=== PATIENT | male | born 1955 | race Caucasian/White ===

== ENCOUNTER 2024-11-30 23:45 | Inpatient (IN) | payer MEDICARE, OTHER, SELFPAY ==
[2024-11-30] VITALS (8 sets, daily range): BP systolic 101–175; BP diastolic 76–113; BMI 30.4
--- NOTE | 2024-11-30 19:59 | ED.GENMED ---
History of Present Illness
General
Chief Complaint: Fall
Source: patient and family (Sister (POA))
Exam Limitations: none
Time Seen by Provider: 11/30/24 19:41
Nursing documentation reviewed up to this point in time: agreed with
History of Present Illness
History of Present Illness:
69-year-old male with history of MR presents to the emergency room with his sister who is his POA; presents for evaluation after a fall. Patient has ambulatory dysfunction/chronic ataxia. Has frequent falls. Got up to get the remote control today
and lost his balance and fell onto his left side. He is not sure whether he hit his head but complains mainly of pain in his left hip. He says he did not pass out. He denies any headache, neck pain, back pain, rib pain or abdominal pain. He
denies any pain in his upper extremities. He complains of pain in his hip on the left mostly when he tries to move. He is not on any blood thinners per review of his medication list.
Review of Systems
Review of Systems
All Other Systems: ROS reviewed and negative except as documented in HPI and ROS
Respiratory: Denies trouble breathing
Cardiac: Denies chest pain
ABD/GI: Denies abdominal pain or nausea
Musculoskeletal: Reports joint pain; Denies neck pain or back pain
Neurological: Denies headache
Phy Exam
Physical Exam
Physical Exam:
General: Awake, alert, no acute distress
Head: Normocephalic, atraumatic
Eyes: Conjunctiva normal, pupils equal round and reactive to light bilaterally
Throat: Airway intact, handling secretions, tongue atraumatic
Neck: Trachea midline, no cervical spine tenderness, moves through comfortable range of motion
Lungs: Clear to auscultation bilaterally, no wheezing, rales, rhonchi
Heart: Regular rate and rhythm, no murmurs, gallops, or rubs; no chest wall tenderness
Abd: Soft, non distended, nontender
Neuro: No gross deficit
Skin: No lacerations or abrasions noted
Extremities: Left lower extremity is shortened and externally rotated; significant pain with any attempts at range of motion of the left hip; right lower extremity atraumatic, upper extremities are atraumatic and he moves right lower extremity and
both upper extremities through good range of motion without pain; motor and sensory is intact distally in the left lower extremity and is a good strong dorsalis pedis pulse and femoral pulse on the left
Scores
Heart Failure Risk
Heart Failure Risk Score: Not Applicable
Heart Score for Chest Pain Patients
STEMI patient?: Not applicable
Withdrawal Assessment of Alcohol
Withdrawal Assessment Completed?: Not applicable
Course
Orders/Labs/Results
Orders:
Orders
11/30/24 18:59
CR Hip - LT w/wo Pel 2-3 Vw* Urgent
Comment:
Reason For Exam: fall from standing, L groin pain
Include a pelvis x-ray?: Yes
11/30/24 19:56
CT Head W/o Iv Contrast Urgent
Comment:
Reason For Exam: fall, hip fx
11/30/24 19:57
Ketorolac [Toradol] 15 mg IV NOW STA
Morphine Sulfate 4 mg IV NOW STA
11/30/24 20:03
Electrocardiogram (*1) Urgent
Reason for Study: PreOp
EKG- Treatment ONCE
11/30/24 20:13
ABO2 Urgent
BBK Wristband Number:
Associate notified that ABO2 has been ordered: [id number]
Date: 11/30/24
Time: 20:44
Steeplechase Jockey ID: [id number]
Complete Blood Count/With Diff Urgent
Comprehensive Metabolic Panel Urgent
PTT Urgent
Prothrombin Time Urgent
11/30/24 20:52
ORTHOPEDIC CONSULT Urgent
Consulting Provider: Baljit Crockett
Was physician already notified: Yes
11/30/24 20:58
CT Pelvis W/o Iv Contrast Urgent
Comment:
Reason For Exam: hip pain, fx on XR, OR planning
11/30/24 21:04
Type+Screen Urgent
BBK Wristband Number:
Abnormal Lab Results
11/30/24
20:13
WBC 12.8 H 10^3/uL
(4.8-10.8)
MCH 31.8 H pg
(27.0-31.0)
Abs Immat Gran (auto) 0.1 H 10^3/uL
(0-0.05)
Absolute Neuts (auto) 10.3 H 10^3/uL
(1.4-6.5)
Absolute Monos (auto) 1.0 H 10^3/uL
(0.1-0.6)
Neutrophils % 80.4 H %
(42.2-75.2)
Lymphocytes % 10.5 L %
(20.5-51.1)
PT 14.7 H Sec
(11.4-14.6)
Glucose 113 H mg/dl
(70-99)
11/30/24 20:13
11/30/24 20:13
Vital Signs
Initial and Last Documented VS:
Initial Vital Signs
Temp Pulse Resp BP Pulse Ox
37.4 C 85 16 159/97 92
11/30/24 17:41 11/30/24 17:41 11/30/24 17:41 11/30/24 17:41 11/30/24 17:41
Last Documented Vital Signs
Temp Pulse Resp BP Pulse Ox
37.4 C 95 16 101/80 92
11/30/24 17:41 11/30/24 19:00 11/30/24 18:00 11/30/24 20:00 11/30/24 20:15
MDM/Problems Addressed
Differential Diagnosis Includes:
Hip pain: Fracture, dislocation, contusion
MDM/Problems Addressed:
69-year-old male presents after mechanical fall onto his left side; presents with shortened and externally rotated left hip concerning for hip fracture. Neurovascular exam is intact. No other apparent injuries on exam. Hypertensive otherwise
normal vitals. Physical exam as above. Will place IV and send basic screening labs, coags, type and screen. Will check screening EKG. Check x-ray of the left hip. Check CT head in an abundance of caution as he is a poor historian with
significant fall and likely hip fracture. Will treat pain. Reassess after the above.
X-ray reviewed by me shows fracture of the left hip. Discussed with orthopedist requesting CT for operative planning. Will consult on patient. Plan for admission pending rest of workup.
CT head negative for any acute pathology. Labs reviewed no clinically significant abnormalities. Discussed with hospitalist for admission.
Chronic conditions affecting care:
MR
Acute Exacerbation and/or Progression of Chronic Illness:
Acutely hypertensive likely pain related�treat pain but no indication for emergent antihypertensives at this point
Acute Exacerbation and/or Progression of Chronic Illness: HTN
*Radiology
Radiology exam reviewed: preliminary read by ED provider and radiology read reviewed
*Pulse Oximetry
Patient hypoxic: no
*EKG
Interpreted by ED Provider?: Yes
Heart Rate: 100
Rate: normal
Rhythm: sinus
[place]: normal axis
Interval: normal interval
QRS Pattern: normal QRS
Ischemia: other (Nonspecific T wave abnormalities)
*Critical Care Note
Total Time (30-74mins, 75-104mins- exclusive of procedures): Not Applicable
Data Reviewed
Review of Other/Old Records Reveals: Labs and Records
Source: patient and family
Patient Management
Discussion with other providers: Hospitalist (Discussed with hospitalist) and Technical Assistance Consultant (Discussed with orthopedist)
Escalation/DeEscalation of care consider admission/obs:
Admission indicated
ED Attending Note
-
Portions of this chart may have been created with voice recognition software.� Occasional wrong word or��sound alike� substitutions may have occurred due to the inherent limitations of voice recognition software.
Discharge Plan
Departure
Patient Disposition: Admit
Date of Disposition: 11/30/24
Time of Disposition: 22:53
Admit to doctor: Ari
Presentation/result/management discussed w/ accepting MD/DO: Hospitalist
Discharge Problem:
Closed fracture of left hip
Prescriptions:
No Action
sertraline 100 MG tablet
100 mg PO DAILY
cyanocobalamin (vitamin B-12) 1,000 MCG tablet
1,000 mcg PO DAILY
acetaminophen [Tylenol Extra Strength] 500 MG tablet
1,000 mg PO Q8HPRN PRN (Reason: mild pain/fever)
risperidone 2 MG tablet
2 mg PO DAILY
tamsulosin 0.4 MG capsule
0.4 mg PO HS
Mucinex DM 1 EACH tablet extended release 12 hr
1 ea PO [id number] PRN (Reason: cough/congestion)
risperidone 1 MG tablet
1 mg PO HS
cholecalciferol (vitamin D3) 1,000 UNITS tablet
1,000 units PO DAILY
vitamin E (dl, acetate) 400 UNITS capsule
400 units PO BID
mirabegron [Myrbetriq] 50 MG tablet extended release 24 hr
50 mg PO QPM
finasteride 5 mg Tablet
5 mg PO DAILY
Referrals:
Pieter Reyna MD [Family Provider] -
Interventions
Interventions:
*Risk Screen - Suicide Last Done: 11/30/24 17:41
*General Assessment Last Done: 11/30/24 17:41
*Neglect/Abuse Screening Last Done: 11/30/24 17:41
*ED- Fall Risk Assessment Last Done: 11/30/24 17:45
*ED COVID-19 Vaccine History Last Done: 11/30/24 17:45
ED-Musculoskeletal Assessment Last Done: 11/30/24 17:50
ED- Neurological Assessment Last Done: 11/30/24 17:50
ED-Skin Assessment Last Done: 11/30/24 17:50
Discharge Date and Time
Print Language: WOLOF
[2024-11-30] MEDS: TORADOL 15 MG IV (20:11)
[2024-11-30] MEDS: MORPHINE SULFATE 4 MG IV (20:12)
[2024-11-30 20:28] LABS: % Basophils 0.4 % (0-2); % Eosinophils 0.3 % (0-6); % Immature Granulocytes 0.4 % (0-0.5); % Lymphocytes 10.5 % (20.5-51.1); % Neutrophils 80.4 % (42.2-75.2); Absolute Basophils 0.1 10^3/uL (0-0.2); Absolute Immature Granulocytes 0.1 10^3/uL (0-0.05); Absolute Lymphocytes 1.3 10^3/uL (1.2-3.4); Absolute Neutrophils 10.3 10^3/uL (1.4-6.5); Hematocrit 46.3 % (39.0-52.0); Hemoglobin 16.2 g/dL (13.0-18.0); Mean Corpuscular Hgb 31.8 pg (27.0-31.0); Mean Corpuscular Volume 90.8 fL (80.0-94.0); Mean Platelet Volume 9.7 fL (7.4-10.4); Nucleated Red Blood Cells % 0 % (-); Platelet Count 241 10^3/uL (130-400); Red Cell Dist. Width 14.1 % (11.5-14.5); White Blood Cell Count 12.8 10^3/uL (4.8-10.8)
[2024-11-30 20:38] LABS: INR 1.12; PT 14.7 Sec (11.4-14.6)
[2024-11-30 21:13] LABS: ALT (SGPT) 16 U/L (0-50); AST (SGOT) 32 U/L (17-59); Albumin 3.8 g/dl (3.5-5.0); Alkaline Phosphatase 86 U/L (38-126); Blood Urea Nitrogen 17 mg/dl (9-20); Carbon Dioxide 27 mmol/L (22-30); Chloride 105 mmol/L (98-107); Estimated Creatinine Clearance 78 ml/min; Glucose 113 mg/dl (70-99); Potassium 4.6 mmol/L (3.5-5.1); Sodium 140 mmol/L (135-145); Total Bilirubin 0.6 mg/dl (0.2-1.3); Total Protein 6.8 g/dl (6.3-8.2); eGFR > 60.00
--- NOTE | 2024-11-30 23:06 | HPS.HSE ---
Family Physician
-
Family Physician: Pieter Reyna MD
Chief Complaint
-
fall
History of Present Illness
69-year-old male past medical history of chronic ataxia/ambulatory dysfunction, schizophrenia, presenting after a fall. He has frequent falls and he got up to get the remote control today and lost his balance and fell onto his left side. He is not
sure whether he hit his head but complains of pain in his left hip. He did not pass out. Denies headache or neck pain or back pain or rib pain or abdominal pain. Does not take any blood thinners.
Sister is POA.
ER documentation notes history of mitral regurgitation however sister denies this. He denies any chest pain or shortness of breath or dizziness and no cardiac history.
He does not smoke or drink alcohol.
Medical History
Past Medical History
Past Medical History: Reports Other (chronic ataxia/ambulatory dysfunction, schizophrenia)
Past Surgical History: Reports None
Social History
Tobacco: Non-smoker
Alcohol: None
Drug: None
Family History
Family History: Not pertinent
Allergies / Home Medications
Allergies reflects when Allergies were last updated in [facility].
Home Medications with original date entered in [facility]
Allergy/Medication List:
Allergies
Allergy/AdvReac Type Severity Reaction Status Date / Time
No Known Allergies Allergy Verified 11/30/24 17:40
Home Medications
acetaminophen 500 mg tablet (Tylenol Extra Strength) 1,000 mg PO Q8HPRN PRN mild pain/fever 12/03/21
cholecalciferol (vitamin D3) 25 mcg (1,000 unit) tablet 1,000 units PO DAILY 12/03/21
cyanocobalamin (vitamin B-12) 1,000 mcg tablet 1,000 mcg PO DAILY 12/03/21
dextromethorphan-guaifenesin 30 mg-600 mg tablet extended puqnred72 hr (Mucinex DM) 1 ea PO [id number] PRN cough/congestion 12/03/21
mirabegron 50 mg tablet,extended release 24 hr (Myrbetriq) 50 mg PO QPM 12/03/21
risperidone 1 mg tablet 1 mg PO HS 12/03/21
risperidone 2 mg tablet 2 mg PO DAILY 12/03/21
sertraline 100 mg tablet 100 mg PO DAILY 12/03/21
tamsulosin 0.4 mg capsule 0.4 mg PO HS 12/03/21
vitamin E (dl, acetate) 180 mg (400 unit) capsule 400 units PO BID 12/03/21
finasteride 5 mg tablet 5 mg PO DAILY 11/30/24
Review of Systems
-
History Source: Patient
A 12 point ROS was completed and negative except as noted: Yes
Constitutional: Reports No Symptoms
EENT: Reports No Symptoms
Respiratory: Reports No Symptoms
Cardiac: Reports No Symptoms
Abdomen/GI: Reports No Symptoms
: Reports No Symptoms
Musculoskeletal: Reports No Symptoms
Skin: Reports No Symptoms
Neurological: Reports No Symptoms
Endocrine: Reports No Symptoms
Hematologic/Lymphatic: Reports No Symptoms
Psych: Reports No Symptoms
Physical Exam
Vital Signs
Vital Signs
Temp Pulse Resp BP Pulse Ox
99.4 F 95 16 101/80 92
11/30/24 17:41 11/30/24 19:00 11/30/24 18:00 11/30/24 20:00 11/30/24 20:15
Physical Exam
General: Well Developed, Well Nourished and No Apparent Distress
HEENT: NormoCephalic, Moist mucous membranes and Atraumatic
Respiratory: Clear
Cardiac: S1/S2 and Regular Rhythm; No Murmur or Rub
GI: Soft, Non Tender, Non Distended and Normal Bowel Sounds; No Organomegaly
Rectal: Deferred by Provider
Musculoskeletal: No Clubbing, No Cyanosis and No Edema
Skin: No Rash
Neuro: Nonfocal/grossly intact
Laboratory Results
-
11/30/24 20:13
11/30/24 20:
Laboratory Results
PT 14.7 Sec (11.4-14.6) H 11/30/24 20:
INR 1.12 11/30/24:
APTT 35.0 Sec (23.4-35.0) 11/30/24:
Total Bilirubin 0.6 mg/dl (0.2-1.3) 11/30/24:
AST 32 U/L (17-59) 11/30/24:
ALT 16 U/L (0-50) 11/30/24:
Alkaline Phosphatase 86 U/L (38-126) 11/30/24:
Data Reviewed
-
Lab Data: Labs Reviewed by me
Old Records: Reviewed
Impression/Plan
-
IMPRESSION:
PLAN:
# Left hip fracture
- Hip x-ray and pelvic CT shows oblique fracture of the neck of the proximal left femur with posterior angulation of the major distal fracture fragment
- Tylenol, ketorolac, morphine
-Ortho consulted
- N.p.o. past midnight for potential surgery
- Patient low risk of postcardiac complications and can proceed to surgery
Chronic ataxia/ambulatory dysfunction
BPH
- Continue finasteride, tamsulosin
Schizophrenia
- Continue Risperdal, sertraline
Full code
DVT prophylaxis�SCDs
N.p.o. past midnight
[2024-12-01 00:08] VITALS: BMI 29.3
--- NOTE | 2024-12-01 04:27 | TRANSFER ---
Received pt from ED at 2345 dx s/p fall left hip fracture. Pt w MR but was able to answer questions appropriately. Pt followed most commands without issues. VS WNL - pulse ox 88-89 on RA, received order for O2NC. Pt was 93% on 2L. LLE shortened &
externally rotated, pt w good sensation and circulation, movement is poor. Static overlay/ bed alarm applied per protocol. Assessment as documented. Pt instructed on use of call flynn for all needs. Call flynn within reach, bed in lowest position.
[2024-12-01] MEDS: NSS 1000 IV (04:56)
[2024-12-01 08:00] VITALS: BP 156/56
[2024-12-01 08:23] LABS: % Basophils 0.6 % (0-2); % Eosinophils 2.2 % (0-6); % Immature Granulocytes 0.4 % (0-0.5); % Lymphocytes 11.5 % (20.5-51.1); % Monocytes 12.7 % (1.7-9.3); % Neutrophils 72.6 % (42.2-75.2); Absolute Basophils 0.1 10^3/uL (0-0.2); Absolute Eosinophils 0.2 10^3/uL (0-0.7); Absolute Lymphocytes 1.1 10^3/uL (1.2-3.4); Absolute Monocytes 1.3 10^3/uL (0.1-0.6); Absolute Neutrophils 7.1 10^3/uL (1.4-6.5); Hematocrit 44.2 % (39.0-52.0); Hemoglobin 15.3 g/dL (13.0-18.0); Mean Corp Hgb Conc. 34.6 g/dL (33.0-37.0); Mean Corpuscular Hgb 32.1 pg (27.0-31.0); Mean Corpuscular Volume 92.9 fL (80.0-94.0); Nucleated Red Blood Cells % 0 % (-); Platelet Count 207 10^3/uL (130-400); Red Blood Cell Count 4.76 10^6/uL (4.70-6.10); White Blood Cell Count 9.8 10^3/uL (4.8-10.8)
[2024-12-01 09:15] LABS: ALT (SGPT) 14 U/L (0-50); AST (SGOT) 23 U/L (17-59); Albumin 3.4 g/dl (3.5-5.0); Alkaline Phosphatase 77 U/L (38-126); Blood Urea Nitrogen 18 mg/dl (9-20); Calcium 9.3 mg/dl (8.4-10.2); Carbon Dioxide 29 mmol/L (22-30); Chloride 106 mmol/L (98-107); Estimated Creatinine Clearance 70 ml/min; Glucose 97 mg/dl (70-99); Potassium 4.2 mmol/L (3.5-5.1); Sodium 141 mmol/L (135-145); Total Protein 6.1 g/dl (6.3-8.2); eGFR > 60.00
[2024-12-01] MEDS: VITAMIN D3 (cholecalciferol) 25 MCG PO (09:35)
[2024-12-01] MEDS: VITAMIN B-12 1000 MCG PO (09:35)
[2024-12-01] MEDS: ZOLOFT 100 MG PO (09:36)
[2024-12-01] MEDS: VITAMIN E 400 UNITS PO ×2 (09:36→20:13)
[2024-12-01] MEDS: PROSCAR 5 MG PO (09:36)
[2024-12-01] MEDS: RISPERDAL 2 MG PO (09:36)
--- NOTE | 2024-12-01 11:16 | CON.ORTHO ---
Consultation
-
Date/Time Consultation Performed: 12/02/2023 11 AM
Consultation - Orthopedics
History
HPI: 69-year-old male history of mental disability presented to the emergency department complaints of left hip pain and inability to bear weight. He subsequently diagnosed with a displaced left femoral neck fracture. He was admitted to the
hospital service. Orthopedics is consulted for further evaluation and treatment. Patient is really unable to provide any meaningful history. I did speak with his sister who is his medical power of estate planning attorney. She reports that he lives in a group
home setting. She reports that he is supposed to be ambulating with a walker and often times uses a wheelchair. He has chronic gait dysfunction.
Allergies / Home Medications
Past medical history: Chronic ambulatory dysfunction, mental disability
Past surgical history: None reported
Social history: Non-smoker, lives in a [facility] setting
Family history: Not pertinent
Allergy/AdvReac Type Severity Reaction Status Date / Time
No Known Allergies Allergy Verified 11/30/24 17:40
�Medication �Instructions �Recorded
acetaminophen 500 mg tablet 1,000 mg PO Q8HPRN PRN mild 12/03/21
(Tylenol Extra Strength) pain/fever
cholecalciferol (vitamin D3) 25 1,000 units PO DAILY 12/03/21
mcg (1,000 unit) tablet
cyanocobalamin (vitamin B-12) 1,000 mcg PO DAILY 12/03/21
1,000 mcg tablet
dextromethorphan-guaifenesin 30 1 ea PO [id number] PRN 12/03/21
mg-600 mg tablet extended cough/congestion
mcphlro57 hr (Mucinex DM)
mirabegron 50 mg tablet,extended 50 mg PO QPM 12/03/21
release 24 hr (Myrbetriq)
risperidone 1 mg tablet 1 mg PO HS 12/03/21
risperidone 2 mg tablet 2 mg PO DAILY 12/03/21
sertraline 100 mg tablet 100 mg PO DAILY 12/03/21
tamsulosin 0.4 mg capsule 0.4 mg PO HS 12/03/21
vitamin E (dl, acetate) 180 mg 400 units PO BID 12/03/21
(400 unit) capsule
finasteride 5 mg tablet 5 mg PO DAILY 11/30/24
Vital Signs / Lab Results
Temp Pulse Resp BP Pulse Ox
99.5 F 90 18 156/56 96
12/01/24 08:00 12/01/24 08:00 12/01/24 08:00 12/01/24 08:00 12/01/24 08:00
12/01/24 07:27
12/01/24 07:27
10 point review systems reviewed and negative unless otherwise stated
General: In no acute distress, answer simple questions, unable to provide meaningful history
Musculoskeletal left lower extremity
Skin intact, no erythema or ecchymotic staining
There is tenderness palpation over the groin and lateral trochanteric flare
No palpable ipsilateral knee effusion
Extremity shortened externally rotated
Spontaneously moving toes and obvious cap refill
No other areas of bony tenderness palpation crepitation of long bones or joints on tertiary examination
Diagnostic studies
CT scan left hip and x-ray left hip independently viewed by myself. There is a displaced transcervical femoral neck fracture with significant angulation
Assessment / Plan
69-year-old male history of ambulatory dysfunction, mental disability with displaced left, neck fracture. I had a very long detailed discussion with the patient's sister who is medical power of estate planning attorney. We discussed postsurgical nonsurgical
options. We discussed with arthroplasty and fixation options. After discussion we mutually elected proceed with left hip hemiarthroplasty. We discussed risks benefits and alternatives to surgery. We discussed the usual expected perioperative
postoperative course. No guarantees were given. After discussion written informed consent was obtained from the sister. We did have a detailed discussion regarding hip precautions and rehabilitation that is required after surgery and again she
was in favor of proceeding.
Nonweightbearing left lower extremity
N.p.o.
Please hold anticoagulation
Medical management per primary team
Pain control
Plan: 2 OR today for left hip hemiarthroplasty pending or availability and medical clearance
--- NOTE | 2024-12-01 11:18 | W.PN.UPDATE ---
Update Note
Progress Note Update
Patient seen and evaluated bedside today. Unable to obtain significant history from patient.
69-year-old male with mental disability status post fall with left femoral neck fracture
Nonweightbearing left lower extremity
N.p.o. at midnight
Please hold anticoagulation appropriate for OR tomorrow
Medical management per primary team
Pain control
I did attempt to reach out to patient's medical power of defense attorney who is his sister. I left a message with her. Will plan to contact her later today again to discuss treatment options. Would likely recommend left hip hemiarthroplasty tomorrow
pending further discussion with the sister
Formal consult note to follow
Please reach out any questions or concerns
--- NOTE | 2024-12-01 11:59 | CM ---
Addendum entered by Renee Godfrey 12/01/24 16:18:
CM tried again to sister and phone again busy.
Original Note:
Patient seen at bedside on 2 . Patient pending surgery per chart review. Patient T/C to patient's sister, Yvette Somers, who is caregiver for patient, per chart, CM tried to reach her via phone but phone busy. Per prior admission
patient lives with sister and family provides care. Patient unable to answer questions about PCP and home environment. CM will call and review discharge planning needs.
Plan; pending functional status closer to discharge.
--- NOTE | 2024-12-01 13:00 | W.PN.HOSP.TC ---
Today's Communication/Plan
-
continue current care
for OR tomorrow
Assessment / Plan
Assessment / Plan
# Left hip fracture
- Hip x-ray and pelvic CT shows oblique fracture of the neck of the proximal left femur with posterior angulation of the major distal fracture fragment
- Tylenol, ketorolac, morphine
- Going to OR tomorrow
- OK for diet today, NPO past midnight for OR Tomorrow
- Patient low risk of postcardiac complications and can proceed to surgery
Chronic ataxia/ambulatory dysfunction
BPH
- Continue finasteride, tamsulosin
Schizophrenia
- Continue Risperdal, sertraline
Full code
DVT prophylaxis�SCDs
Anticipated Discharge: 24 - 48 hours
Subjective/Interval History
-
Date of Service: December 01, 2024
no reported problems overnight
comfortable in bed
Objective Data
-
Labs:
Laboratory Results
12/01/24
07:27
WBC 9.8
Hgb 15.3
Hct 44.2
Plt Count 207
Sodium 141
Potassium 4.2
Chloride 106
Carbon Dioxide 29
BUN 18
Creatinine 1.1
Glucose 97
Calcium 9.3
Total Bilirubin 1.0
AST 23
ALT 14
Alkaline Phosphatase 77
Vital Signs:
Vital Signs
Temp Pulse Resp BP Pulse Ox
99.5 F 90 18 156/56 96
12/01/24 08:00 12/01/24 08:00 12/01/24 08:00 12/01/24 08:00 12/01/24 08:00
I&O
11/30/24 12/01/24 12/02/24
06:59 06:59 06:59
Intake Total 480 / 480
Balance 480 / 480
Review of Systems
-
Respiratory: Reports No Symptoms
Cardiac: Reports No Symptoms
Abdomen/GI: Reports No Symptoms
Physical Exam
-
General: No Apparent Distress and Comfortable
HEENT: Negative Oxygen
Respiratory: Clear to Auscultation
Cardiac: Regular Rhythm and S1/S2; Negative Murmur or Rub
GI: Soft, Nontender and Nondistended
Musculoskeletal: No Edema
Neuro: Awake, Alert, Oriented, No Motor Deficits and Nonfocal/Grossly Intact
Psych: Calm
[2024-12-01 14:55] VITALS: BP 131/78
[2024-12-01] MEDS: DETROL LA 4 MG PO (17:24)
[2024-12-01] MEDS: RISPERDAL 1 MG PO (20:13)
[2024-12-01] MEDS: FLOMAX 0.4 MG PO (20:13)
[2024-12-01 23:31] VITALS: BP 122/65
[2024-12-02] VITALS (11 sets, daily range): BP systolic 110–150; BP diastolic 61–106; PULSE 88–91; O2SAT 94
[2024-12-02 06:16] LABS: Hematocrit 41.9 % (39.0-52.0); Hemoglobin 14.2 g/dL (13.0-18.0); Mean Corp Hgb Conc. 33.9 g/dL (33.0-37.0); Mean Corpuscular Hgb 31.2 pg (27.0-31.0); Mean Corpuscular Volume 92.1 fL (80.0-94.0); Mean Platelet Volume 10.6 fL (7.4-10.4); Platelet Count 194 10^3/uL (130-400); Red Blood Cell Count 4.55 10^6/uL (4.70-6.10); Red Cell Dist. Width 14.1 % (11.5-14.5); White Blood Cell Count 9.1 10^3/uL (4.8-10.8)
[2024-12-02 06:35] LABS: Blood Urea Nitrogen 11 mg/dl (9-20); Carbon Dioxide 28 mmol/L (22-30); Chloride 106 mmol/L (98-107); Estimated Creatinine Clearance 85 ml/min; Glucose 111 mg/dl (70-99); Potassium 4.5 mmol/L (3.5-5.1); Sodium 138 mmol/L (135-145); eGFR > 60.00
--- NOTE | 2024-12-02 10:48 | OR.RPT ---
Operative Report
Operative Report
Date
December 02, 2024
Anesthesia Type:
Spinal
Operative Indications:
Displaced left femoral neck fracture
Operative Findings :
Same
Complications:
None
Implants:
Tatyana Heritage size 13 femoral stem, size 54 bipolar shell, 28+7 head
Procedure and Technique:
Left hip cemented hemiarthroplasty
INDICATIONS FOR PROCEDURE:
69-year-old female history of mental disability status post fall presented with complaint of left hip pain and inability to bear weight. Subsequently he was diagnosed with a left displaced femoral neck fracture. I had a long detailed discussion
with the patient's sister who is medical power of commercial litigation attorney regarding treatment options. We discussed both fixation and arthroplasty options. We discussed postsurgical nonsurgical options. After discussion mutually agreed to proceed with left hip
hemiarthroplasty. We discussed risks benefits and alternatives to surgery. Discussed usual expected perioperative and postoperative course. After discussion written informed consent was obtained
OPERATIVE PROCEDURE:
Patient was seen and identified in the preoperative holding area. Operative extremity was marked. Patient was taken to the operating room and anesthesia was administered by the anesthesia providers. Patient was then placed in a lateral decubitus
position with the use of a davis bag. All bony prominences were well-padded. Operative extremity was then prepped and draped in normal sterile fashion. Timeout was performed again identifying the correct operative extremity. Preoperative
antibiotics were addressed. Standard posterior approach to the hip was taken. Sharp dissection was carried through skin and subcutaneous tissues and deep fascial layer. Hemostasis was achieved with electrocautery. Hip was then placed on slight
internal rotation to place the external rotators on stretch. Piriformis was identified and a Cobra retractor was then placed under the gluteus medius and minimus. Piriformis and short external rotators were taken down and tagged. A T capsulotomy
was then performed and capsular leaflets were also tagged. The fracture was identified and a freshen up cut was performed. The femoral head was then removed and sized. Appropriately sized ball on a stick was then placed into the acetabulum and
felt to have appropriate suction fit. Attention was then turned to the proximal femur where soft tissue remnants were removed from the piriformis fossa. Remnant neck was removed with the use of a cookie cutter. Canal finder was then placed in
addition to lateralizing reamer. Stepwise broaching was then performed to the appropriate size. Implants were then trialed and found to have appropriate stability in deep flexion, internal rotation, shuck and adduction. Implants were then removed
and canal was copiously irrigated normal saline solution. Cement restrictor was then placed. Pressurized cement was then placed into the femoral canal and appropriately sized femoral stem was then placed in the appropriate version. After cement
had hardened, final implants were then placed and the hip was again taken through range of motion and found to be quite stable. Satisfied with the extent of surgery, wound was copiously irrigated with normal saline solution and a Betadine solution.
The capsule, piriformis and short external rotators were then repaired through osseous tunnels into the greater trochanter. Wound was then closed in a layered fashion utilizing 0 Vicryl for deep fascial layer, 2-0 Vicryl for subcutaneous layer and
madie for skin. Aquacel dressing was then placed. Anesthesia was reversed and patient was taken to PACU in a stable condition. Postoperative plans will include weightbearing to the patient's tolerance in the operative extremity. Posterior hip
precautions will be advised. Recommend DVT prophylaxis consisting of renally dosed Lovenox daily for 28 days unless patient is already on baseline anticoagulation. Will plan to see patient back in 2 weeks for postoperative evaluation with planned
removal of madie.
Disposition:
PACU, stable condition
[2024-12-02] MEDS: ZOFRAN 4 MG IV (11:27)
--- NOTE | 2024-12-02 12:11 | PTCARENOTE ---
Pt returned from PACU drowsy but easily arouses to verbal stimuli. L hip primaseal c/d/i. Pt with decreased movement to LLE, neurovascular assessment otherwise WDL. Abductor pillow maintained. Nasal Cannula maintained. IVF initiated and infusing
per order. Pt instructed to ring for assistance, verbalized understanding. Bed locked in the lowest position. Call flynn within reach. Safety maintained.
[2024-12-02] MEDS: ZOLOFT 100 MG PO (12:55)
[2024-12-02] MEDS: VITAMIN B-12 1000 MCG PO (12:55)
[2024-12-02] MEDS: VITAMIN D3 (cholecalciferol) 25 MCG PO (12:55)
[2024-12-02] MEDS: RISPERDAL 2 MG PO (12:55)
[2024-12-02] MEDS: PROSCAR 5 MG PO (12:55)
[2024-12-02] MEDS: VITAMIN E 400 UNITS PO ×2 (12:55→20:53)
[2024-12-02] MEDS: NSS 1000 IV ×2 (12:58→16:19)
--- NOTE | 2024-12-02 15:06 | W.PN.HOSP.TC ---
Today's Communication/Plan
-
post OR Today
continue current care plan
pt/ot tomorrow
discharge planning tomorrow
Assessment / Plan
Assessment / Plan
# Left hip fracture
- Hip x-ray and pelvic CT shows oblique fracture of the neck of the proximal left femur with posterior angulation of the major distal fracture fragment
- Tylenol, ketorolac, morphine
- Patient low risk of postcardiac complications and can proceed to surgery
- S/p left hip cemented hemiarthroplasty on 12/02
- PT OT early as tomorrow
- Follow-up blood work
Chronic ataxia/ambulatory dysfunction
BPH
- Continue finasteride, tamsulosin
Schizophrenia
- Continue Risperdal, sertraline
Full code
DVT prophylaxis�SCDs
Anticipated Discharge: Within 24 hours
Subjective/Interval History
-
Date of Service: December 02, 2024
Patient seen postoperatively
Not voicing any complaints
Objective Data
-
Labs:
Laboratory Results
12/02/24
04:47
WBC 9.1
Hgb 14.2
Hct 41.9
Plt Count 194
Sodium 138
Potassium 4.5
Chloride 106
Carbon Dioxide 28
BUN 11
Creatinine 0.9
Glucose 111 H
Calcium 9.0
Vital Signs:
Vital Signs
Temp Pulse Resp BP Pulse Ox
97.8 F 80 16 110/66 94
12/02/24 12:15 12/02/24 12:15 12/02/24 12:15 12/02/24 12:15 12/02/24 12:15
I&O
12/01/24 12/02/24 12/03/24
06:59 06:59 06:59
Intake Total 480 / 480 580 / 580 720 / 720
Output Total 1700 / 1700
Balance 480 / 480 -1120 / -1120 720 / 720
Review of Systems
-
Respiratory: Reports No Symptoms
Cardiac: Reports No Symptoms
Abdomen/GI: Reports No Symptoms
Physical Exam
-
General: No Apparent Distress and Comfortable
HEENT: Oxygen
Neuro: Awake, Alert and Oriented
Psych: Calm
--- NOTE | 2024-12-02 15:16 | CM ---
Addendum entered by Renee Godfrey 12/02/24 15:58:
CM reviewed with patient sister/POA PASSR; patient will need a Level II assessment unless he qualifies as an exemption for 30 days or less. Pending PT/OT assessment. Patient will need SNF placement and sister wants to review all SNF options prior to
allowing CM to send the referrals. CM will send request for level II, paperwork needed to be completed. CM will continue to follow for discharge planning needs.
Original Note:
Patient seen at bedside and CM spoke with Patient sister; Yvette. Per Yvette patient lives at [facility]. Patient sister would like patient to go to SNF and patient has an intellectual disability of 4th grade level, as well as
schizophrenia diagnosis. Patient did not ever have any behavioral issues. 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 Ataxia is the primary issue, and patient has gotten less coordinated in the
last 20 years. Patient has been at assisted living for the last 20 years. Patient able to stand and transferring to bed and fell. Patient was at [facility] approx 5/6 needs. Patient goes to [facility] and sees psychiatrist there.
[2024-12-02] MEDS: DETROL LA 4 MG PO (18:23)
[2024-12-02] MEDS: ANCEF 5 IV ×2 (18:24→23:55)
[2024-12-02] MEDS: COLACE 100 MG PO (20:53)
[2024-12-02] MEDS: FLOMAX 0.4 MG PO (21:38)
[2024-12-02] MEDS: RISPERDAL 1 MG PO (21:38)
[2024-12-02] MEDS: TYLENOL 1000 MG PO (22:48)
[2024-12-03] MEDS: NSS 1000 IV (03:12)
[2024-12-03 03:18] VITALS: BP 111/60
[2024-12-03 07:13] LABS: Hematocrit 36.4 % (39.0-52.0); Hemoglobin 12.2 g/dL (13.0-18.0); Mean Corp Hgb Conc. 33.5 g/dL (33.0-37.0); Mean Corpuscular Hgb 31.6 pg (27.0-31.0); Mean Corpuscular Volume 94.3 fL (80.0-94.0); Mean Platelet Volume 10.8 fL (7.4-10.4); Platelet Count 169 10^3/uL (130-400); Red Blood Cell Count 3.86 10^6/uL (4.70-6.10); Red Cell Dist. Width 14.1 % (11.5-14.5); White Blood Cell Count 9.1 10^3/uL (4.8-10.8)
[2024-12-03 07:14] LABS: Blood Urea Nitrogen 14 mg/dl (9-20); Calcium 8.6 mg/dl (8.4-10.2); Carbon Dioxide 27 mmol/L (22-30); Chloride 107 mmol/L (98-107); Estimated Creatinine Clearance 77 ml/min; Glucose 136 mg/dl (70-99); Potassium 4.2 mmol/L (3.5-5.1); Sodium 137 mmol/L (135-145); eGFR > 60.00
[2024-12-03 07:30] VITALS: BP 110/65
[2024-12-03] MEDS: VITAMIN D3 (cholecalciferol) 25 MCG PO (09:05)
[2024-12-03] MEDS: VITAMIN E 400 UNITS PO ×2 (09:06→21:09)
[2024-12-03] MEDS: LOVENOX 40 MG SC (09:06)
[2024-12-03] MEDS: PROSCAR 5 MG PO (09:06)
[2024-12-03] MEDS: VITAMIN B-12 1000 MCG PO (09:06)
[2024-12-03] MEDS: COLACE 100 MG PO ×2 (09:06→21:09)
[2024-12-03] MEDS: ZOLOFT 100 MG PO (09:06)
[2024-12-03] MEDS: RISPERDAL 2 MG PO (09:06)
[2024-12-03 11:32] VITALS: BP 141/84; BP 142/62; O2SAT 88
[2024-12-03 11:34] VITALS: BP 141/84; BP 142/62; PULSE 98; O2SAT 88
[2024-12-03] MEDS: NSS IV (13:48)
[2024-12-03] MEDS: TYLENOL 1000 MG PO (14:26)
--- NOTE | 2024-12-03 14:58 | CM ---
Reviewed the chart notes and spoke with the patient and his sister at the bedside. [facility] Level II paperwork signed by the sister, waiting for attending to sign MA-51 Form. All paperwork will be faxed along with clinicals to [facility]. Discussed
SNF/rehab with patient's sister. Referrals to be sent via [facility]. CM continues to be available to patient/family and is monitoring medical plan for needs at discharge.
Plan: Short term rehab prior to returning to [facility] facility.
[2024-12-03 15:24] VITALS: BP 108/73
--- NOTE | 2024-12-03 15:39 | W.PN.HOSP.TC ---
Today's Communication/Plan
-
Assessment / Plan
Assessment / Plan
NAD
Scleral Anicteric
MMM
No JVD
CTABL
RRR, S1/S2
Soft, NT, ND, BS+
Warm, Dry
Left hip fracture
- Hip x-ray and pelvic CT shows oblique fracture of the neck of the proximal left femur with posterior angulation of the major distal fracture fragment
- Tylenol, ketorolac, morphine
- Patient low risk of postcardiac complications and can proceed to surgery
- S/p left hip cemented hemiarthroplasty on 12/02
- PT OT early as tomorrow
- Follow-up blood work
Fever
- Post op fever
- Encuorage deep breathing exercises
- CXR and Bcx
Chronic ataxia/ambulatory dysfunction
- PT/OT
BPH
- Continue finasteride, tamsulosin
Schizophrenia
- Continue Risperdal, sertraline
Full code
DVT prophylaxis�SCDs
Anticipated Discharge: > 48 hours
Subjective/Interval History
-
Date of Service: December 03, 2024
Seen and examined. No new complaints. No acute overnight events.
Sitting in physical therapy chair when he would be going back to bed.
Objective Data
-
Labs:
Laboratory Results
12/03/24
06:21
WBC 9.1
Hgb 12.2 L
Hct 36.4 L
Plt Count 169
Sodium 137
Potassium 4.2
Chloride 107
Carbon Dioxide 27
BUN 14
Creatinine 1.0
Glucose 136 H
Calcium 8.6
Vital Signs:
Vital Signs
Temp Pulse Resp BP Pulse Ox
101.1 F H 76 18 108/73 96
12/03/24 15:24 12/03/24 15:24 12/03/24 15:24 12/03/24 15:24 12/03/24 15:24
I&O
12/02/24 12/03/24 12/04/24
06:59 06:59 06:59
Intake Total 580 / 580 4320 / 4320 700 / 700
Output Total 1700 / 1700
Balance -1120 / -1120 4320 / 4320 700 / 700
[2024-12-03] MEDS: DETROL LA 4 MG PO (18:23)
--- NOTE | 2024-12-03 19:06 | W.PN.ORTHO ---
Today's Communication / Plan
-
69-year-old male history of cognitive disability postop day 1 status post left hip hemiarthroplasty doing well
Weightbearing as tolerated left lower extremity
PT OT
Pain control
DVT prophylaxis: Recommend renally dosed Lovenox x 28 days
Posterior precautions
Medical management per primary team
Plan to follow-up with myself outpatient 2 weeks for repeat clinical assessment
Subjective
.
.:
Patient minimally interactive this morning but pleasant. Denies any significant pain when asked. No acute overnight events reported.
Vital Signs and Labs
.
Vital Signs and Labs:
Lab Results
12/03/24 06:21
12/03/24 06:21
Temp Pulse Resp BP Pulse Ox
101.1 F H 76 18 108/73 96
12/03/24 15:24 12/03/24 15:24 12/03/24 15:24 12/03/24 15:24 12/03/24 15:24
PT 14.7 Sec (11.4-14.6) H 11/30/24 20:13
INR 1.12 11/30/24 20:13
Physical Exam
-
Musculoskeletal left lower extremity
Dressing with minimal bloody drainage
Leg lengths approximately equal
Spontaneously moving toes
Distal extremity warm and pink
[2024-12-03] MEDS: FLOMAX 0.4 MG PO (21:09)
[2024-12-03] MEDS: RISPERDAL 1 MG PO (21:10)
[2024-12-03 23:30] VITALS: BP 163/83
[2024-12-04 03:13] VITALS: BP 124/70
[2024-12-04] MEDS: TYLENOL 1000 MG PO ×2 (03:21→22:08)
[2024-12-04 06:43] LABS: Mean Corp Hgb Conc. 34.3 g/dL (33.0-37.0); Mean Corpuscular Volume 93.3 fL (80.0-94.0); Mean Platelet Volume 10.4 fL (7.4-10.4); Platelet Count 186 10^3/uL (130-400); Red Blood Cell Count 3.75 10^6/uL (4.70-6.10); White Blood Cell Count 8.5 10^3/uL (4.8-10.8)
[2024-12-04 07:03] LABS: Blood Urea Nitrogen 13 mg/dl (9-20); Calcium 8.7 mg/dl (8.4-10.2); Carbon Dioxide 28 mmol/L (22-30); Chloride 108 mmol/L (98-107); Estimated Creatinine Clearance 77 ml/min; Glucose 110 mg/dl (70-99); Potassium 4.3 mmol/L (3.5-5.1); Sodium 140 mmol/L (135-145); eGFR > 60.00
[2024-12-04 07:30] VITALS: BP 118/73
[2024-12-04] MEDS: VITAMIN E 400 UNITS PO ×2 (10:17→20:56)
[2024-12-04] MEDS: ZOLOFT 100 MG PO (10:17)
[2024-12-04] MEDS: VIBRAMYCIN 100 MG PO ×2 (10:18→20:56)
[2024-12-04] MEDS: PROSCAR 5 MG PO (10:18)
[2024-12-04] MEDS: VITAMIN D3 (cholecalciferol) 25 MCG PO (10:18)
[2024-12-04] MEDS: VITAMIN B-12 1000 MCG PO (10:19)
[2024-12-04] MEDS: RISPERDAL 2 MG PO (10:19)
[2024-12-04] MEDS: COLACE 100 MG PO ×2 (10:19→20:56)
[2024-12-04] MEDS: ROCEPHIN 1000 MG IV (10:21)
[2024-12-04] MEDS: STERILE WATER FOR INJECTION 10 ML IV (10:21)
[2024-12-04] MEDS: LOVENOX 40 MG SC (10:21)
[2024-12-04 12:46] VITALS: BP 126/76; BP 131/78; PULSE 87; O2SAT 92
[2024-12-04 12:47] VITALS: BP 126/76; BP 131/78; PULSE 86; O2SAT 90
--- NOTE | 2024-12-04 15:19 | W.PN.HOSP.TC ---
Today's Communication/Plan
-
Assessment / Plan
Assessment / Plan
NAD
Scleral Anicteric
MMM
No JVD
CTABL
RRR, S1/S2
Soft, NT, ND, BS+
Warm, Dry
Left hip fracture
- Hip x-ray and pelvic CT shows oblique fracture of the neck of the proximal left femur with posterior angulation of the major distal fracture fragment
- Tylenol, ketorolac, morphine
- S/p left hip cemented hemiarthroplasty on 12/02
- DVT ppx with lmwh for 28days per Ortho
- PT OT rec SNF
- Follow-up blood work
Fever
- Post op fever
- Encuorage deep breathing exercises
- CXR and Bcx
--cxr with ?intersitial pna, will start antibiotics with ctx and doxy
Chronic ataxia/ambulatory dysfunction
- PT/OT rec snf
BPH
- Continue finasteride, tamsulosin
Schizophrenia
- Continue Risperdal, sertraline
Full code
DVT prophylaxis� LMWH
Anticipated Discharge: Within 24 hours
Subjective/Interval History
-
Date of Service: December 04, 2024
seen and examined
not doing incentive allan
no cough nor fever
Objective Data
-
Labs:
Laboratory Results
12/04/24
06:16
WBC 8.5
Hgb 12.0 L
Hct 35.0 L
Plt Count 186
Sodium 140
Potassium 4.3
Chloride 108 H
Carbon Dioxide 28
BUN 13
Creatinine 1.0
Glucose 110 H
Calcium 8.7
Vital Signs:
Vital Signs
Temp Pulse Resp BP Pulse Ox
98.0 F 80 16 118/73 94
12/04/24 07:30 12/04/24 07:30 12/04/24 07:30 12/04/24 07:30 12/04/24 10:00
I&O
12/03/24 12/04/24 12/05/24
06:59 06:59 06:59
Intake Total 4320 / 4320 1140 / 1140 720 / 720
Output Total 1000 / 1000 300 / 300
Balance 4320 / 4320 140 / 140 420 / 420
[2024-12-04 15:20] VITALS: BP 122/89
[2024-12-04] MEDS: DETROL LA 4 MG PO (17:03)
[2024-12-04] MEDS: FLOMAX 0.4 MG PO (22:03)
[2024-12-04] MEDS: RISPERDAL 1 MG PO (22:03)
[2024-12-04 23:10] VITALS: BP 124/71
[2024-12-05 07:30] VITALS: BP 160/85
--- NOTE | 2024-12-05 09:00 | CM ---
Addendum entered by Randi Gomez RN 12/05/24 15:07:
Call report to: [phone]
Fax report to: [phone]
Medical and necessity forms on chart.
Addendum entered by Randi Gomez RN 12/05/24 13:09:
IMM reviewed with patient's sister via telephone. Attempting to place patient under exceptional admission status at [facility]. They are reviewing.
Original Note:
Reviewed the chart notes. BRYN spoke with Akira with the [facility]. Completed MA-51 was faxed yesterday to [facility]. Per Akira, she sees nothing in the system, but she will forward the information regarding needing a Level II evaluation. Refaxed
complete packet with clinicals and PASRR attached. Patient's sister is in agreement with [facility] who is willing to accept the patient. BRYN spoke with Kellen admissions liaison with [facility] to confirm able to accept. Kellen will reach
out to [facility] to confirm ability to accept. CM continues to be available to patient/family and is monitoring medical plan for needs at discharge.
Plan: Discharge to SNF/rehab once bed secured and [facility] evaluation completed. No prior auth will be required.
[2024-12-05] MEDS: STERILE WATER FOR INJECTION 10 ML IV (09:29)
[2024-12-05] MEDS: ROCEPHIN 1000 MG IV (09:30)
[2024-12-05] MEDS: RISPERDAL 2 MG PO (09:31)
[2024-12-05] MEDS: LOVENOX 40 MG SC (09:31)
[2024-12-05] MEDS: PROSCAR 5 MG PO (09:31)
[2024-12-05] MEDS: ZOLOFT 100 MG PO (09:31)
[2024-12-05] MEDS: COLACE 100 MG PO (09:31)
[2024-12-05] MEDS: VITAMIN E 400 UNITS PO (09:31)
[2024-12-05] MEDS: VITAMIN B-12 1000 MCG PO (09:31)
[2024-12-05] MEDS: VITAMIN D3 (cholecalciferol) 25 MCG PO (09:31)
[2024-12-05] MEDS: VIBRAMYCIN 100 MG PO (09:31)
--- NOTE | 2024-12-05 12:20 | W.PN.HOSP.TC ---
Today's Communication/Plan
-
Awaiting placement
Assessment / Plan
Assessment / Plan
NAD
Scleral Anicteric
MMM
No JVD
CTABL
RRR, S1/S2
Soft, NT, ND, BS+
Warm, Dry
Left hip fracture
- Hip x-ray and pelvic CT shows oblique fracture of the neck of the proximal left femur with posterior angulation of the major distal fracture fragment
- Tylenol, ketorolac, morphine
- S/p left hip cemented hemiarthroplasty on 12/02
- DVT ppx with lmwh for 28days per Ortho
- PT OT rec SNF
- Follow-up blood work
Fever
- Post op fever
- Encuorage deep breathing exercises
- Rocephin doxycycline x 5 days
Chronic ataxia/ambulatory dysfunction
- PT/OT rec snf
BPH
- Continue finasteride, tamsulosin
Schizophrenia
- Continue Risperdal, sertraline
Full code
DVT prophylaxis� LMWH
Dispo SNF
Will likely require less than 30 days for group home facility services as his symptoms and behaviors are stable.
Anticipated Discharge: Within 24 hours
Subjective/Interval History
-
Date of Service: December 05, 2024
Seen and examined. No new complaints. No acute overnight events.
Without evidence of abnormal behaviors
Does not remember when his last bowel movement
Objective Data
-
Vital Signs:
Vital Signs
Temp Pulse Resp BP Pulse Ox
98.5 F 87 16 160/85 93
12/05/24 07:30 12/05/24 07:30 12/05/24 07:30 12/05/24 07:30 12/05/24 07:30
I&O
12/04/24 12/05/24 12/06/24
06:59 06:59 06:59
Intake Total 1140 / 1140 1697 / 1697 240 / 240
Output Total 1000 / 1000 1125 / 1125
Balance 140 / 140 572 / 572 240 / 240
[2024-12-05 13:04] VITALS: BP 154/84; PULSE 94; O2SAT 90
--- NOTE | 2024-12-05 15:13 | W.DCSUMMARY ---
Discharge Summary
Discharge Data
Date of Admission: 11/30/24
Date of Discharge: 12/05/24
-
Pending Results: No
Hospital Course
69-year-old male past medical history of chronic ataxia/ambulatory dysfunction, schizophrenia
Presented after fall sustaining a left hip fracture was taken to the OR with orthopedics for left hip cemented hemiarthroplasty on 12/02. Per orthopedics recommended 28 days of low molecular weight heparin (enoxaparin). Was evaluated by PT and OT
recommended [facility] facility.
Hospitalization was complicated by postop fever on 12/03/2024. This is likely related to inability to follow incentive spirometer use. However fever persisted therefore started on Rocephin and doxycycline and this has been transitioned to cefdinir
doxycycline to complete 5-day course.
Hip Xray
FINDINGS and IMPRESSION:
Fracture of the neck of the proximal left femur is seen limited in evaluation by osseous overlap.
Please see separate concurrent CT Pelvis report.
HeadCT
IMPRESSION:
No acute intracranial abnormalities.
Findings compatible with diffuse cortical atrophy with nonspecific white matter changes as described above.
Pelvis CT
IMPRESSION:
Oblique fracture of the neck of the proximal left femur with posterior angulation of the major distal fracture fragment.
CXR
IMPRESSION:
No radiographically demonstrable pneumonia. Mild cardiomegaly without congestive heart failure.
Hip Xray
Findings/impression:
Orthopedic hardware related to left hip prosthesis appears intact and well-seated. Regional osseous structures are intact. Postsurgical soft tissue swelling, soft tissue gas, and superficial skin closure madie are demonstrated.
CXR
IMPRESSION:
Subtle increased interstitial markings within the mid to lower lungs bilaterally with subtle peribronchial thickening, and appears new from earlier radiograph. Findings most likely represents bronchitis and/or interstitial pneumonia.
Cardiomegaly. Vasculature is likely not actively congested. No significant pleural effusions are identified on this portable AP exam.
Discharge Plan
-
Patient Disposition: Usp/SNF
Discharge Diagnosis/Procedures: Left hip fracture
Postop pneumonia
Condition: Fair
Diet: As tolerated, Low Fat and Low Cholesterol
Activity: As tolerated
Other Services: PT and OT
Activity Restrictions/Additional Instructions:
69-year-old male past medical history of chronic ataxia/ambulatory dysfunction, schizophrenia
Presented after fall sustaining a left hip fracture was taken to the OR with orthopedics for left hip cemented hemiarthroplasty on 12/02. Per orthopedics recommended 28 days of low molecular weight heparin (enoxaparin). Was evaluated by PT and OT
recommended [facility] facility.
Hospitalization was complicated by postop fever on 12/03/2024. This is likely related to inability to follow incentive spirometer use. However fever persisted therefore started on Rocephin and doxycycline and this has been transitioned to cefdinir
doxycycline to complete 5-day course.
Hip Xray
FINDINGS and IMPRESSION:
Fracture of the neck of the proximal left femur is seen limited in evaluation by osseous overlap.
Please see separate concurrent CT Pelvis report.
HeadCT
IMPRESSION:
No acute intracranial abnormalities.
Findings compatible with diffuse cortical atrophy with nonspecific white matter changes as described above.
Pelvis CT
IMPRESSION:
Oblique fracture of the neck of the proximal left femur with posterior angulation of the major distal fracture fragment.
CXR
IMPRESSION:
No radiographically demonstrable pneumonia. Mild cardiomegaly without congestive heart failure.
Hip Xray
Findings/impression:
Orthopedic hardware related to left hip prosthesis appears intact and well-seated. Regional osseous structures are intact. Postsurgical soft tissue swelling, soft tissue gas, and superficial skin closure madie are demonstrated.
CXR
IMPRESSION:
Subtle increased interstitial markings within the mid to lower lungs bilaterally with subtle peribronchial thickening, and appears new from earlier radiograph. Findings most likely represents bronchitis and/or interstitial pneumonia.
Cardiomegaly. Vasculature is likely not actively congested. No significant pleural effusions are identified on this portable AP exam.
Referrals:
Pieter Reyna MD [Family Provider] -
Baljit Crockett MD [Active] - in one to two weeks
Prescriptions:
New
doxycycline hyclate 100 mg Capsule
100 mg PO Q12 4 Days Qty: 8 0RF
enoxaparin 40 mg/0.4 mL Syringe
40 mg SC DAILY 28 Days Qty: 28 0RF
cefdinir 300 mg capsule
300 mg PO Q12H 4 Days Qty: 8 0RF
Continued
sertraline 100 MG tablet
100 mg PO DAILY
cyanocobalamin (vitamin B-12) 1,000 MCG tablet
1,000 mcg PO DAILY
acetaminophen [Tylenol Extra Strength] 500 MG tablet
1,000 mg PO Q8HPRN PRN (Reason: mild pain/fever)
risperidone 2 MG tablet
2 mg PO DAILY
tamsulosin 0.4 MG capsule
0.4 mg PO HS
Mucinex DM 1 EACH tablet extended release 12 hr
1 ea PO [id number] PRN (Reason: cough/congestion)
risperidone 1 MG tablet
1 mg PO HS
cholecalciferol (vitamin D3) 1,000 UNITS tablet
1,000 units PO DAILY
vitamin E (dl, acetate) 400 UNITS capsule
400 units PO BID
mirabegron [Myrbetriq] 50 MG tablet extended release 24 hr
50 mg PO QPM
finasteride 5 mg Tablet
5 mg PO DAILY
Discharge Orders:
Discharge Patient (As Directed); Ordered 12/05/24
Ordered By: Fly Tavarez
Discharge Date and Time
Print Language: KOREAN
[2024-12-05 15:50] VITALS: BP 123/74
[2024-12-05] MEDS: DETROL LA PO (19:51)
== END 2024-12-05 18:55 | DRG 522 ==
LOC: 2 SOUTH 23:45
PROVIDERS: Hospitalist; ADMITTING PHYSICIAN Hospitalist; ATTENDING PHYSICIAN Hospitalist; CONSULT PHYSICIAN Orthopaedic Surgery; EMERGENCY PHYSICIAN Emergency Medicine; FAMILY PHYSICIAN Internal Medicine
PROC: 0SRS0J9 Replacement of Left Hip Joint, Femoral Surface with Synthetic Substitute, Cemented, Open Approach (ICD-10-PCS; 2024-12-02)
DX: S72.002A Fracture of unspecified part of neck of left femur, initial encounter for closed fracture (principal); J84.9 Interstitial pulmonary disease, unspecified; F20.9 Schizophrenia, unspecified; R50.82 Postprocedural fever; I34.0 Nonrheumatic mitral (valve) insufficiency
CPT/HCPCS: 70450; 71045; 72192; 73502; 80048; 80053; 85025; 85027; 85610; 85730; 86850; 86900; 86901; 87040; 87070; 93005; 96374; 96375; 97163; 97167; 97530; 97535; 99285

== ENCOUNTER 2025-06-30 13:23 | Emergency (ER) | payer MEDICARE, OTHER, SELFPAY ==
[2025-06-30 13:33] VITALS: BP 137/69
--- NOTE | 2025-06-30 13:35 | ED.GENMED ---
History of Present Illness
General
Chief Complaint: Fever
Time Seen by Provider: 06/30/25 13:24
History of Present Illness
History of Present Illness:
70-year-old male with history of chronic ataxia, hairy cell leukemia in remission, depression, BPH, and intellectual disability presents to the emergency department for evaluation of a fever. Was given acetaminophen at noon today. He denies
complaints on arrival however history is limited due to his intellectual disability.
Review of Systems
Review of Systems
Allergies reviewed?: Yes
All Other Systems: ROS reviewed and negative except as documented in HPI and ROS
Phy Exam
Physical Exam
Physical Exam:
GEN: Well appearing, NAD, WDWN
HEENT: Oral mucosa moist, no scleral icterus
Cardiac: Regular rate and rhythm, no murmur
Lung: No respiratory distress, no tachypnea, lungs clear to auscultation bilaterally
Abdomen: Soft, grossly nontender
MSK: No gross deformity or injuries
Skin: Good color, no pallor or jaundice, no rashes
Neuro: AO x3, moves all extremities freely
Psych: Calm, cooperative
Course
Orders/Labs/Results
Orders:
Orders
06/30/25 13:47
COVID-19 Antigen Urgent
Source: Nasal Swab
Complete Blood Count/With Diff Urgent
Comprehensive Metabolic Panel Urgent
Influenza A+B Rapid Molecular Urgent
WENDY Source: Nasal Swab
Specimen Description:
06/30/25 14:26
Urinalysis Reflex To Culture Urgent
Date Specimen was Collected: 06/30/25
Time Specimen was Collected: 14:22
Urine Microscopic Reflex Cult Urgent
06/30/25 14:49
CR Chest - 2 Views Urgent
Comment:
Reason For Exam: cough, fever
Abnormal Lab Results
06/30/25 06/30/25
13:47 14:26
RDW 14.6 H %
(11.5-14.5)
Absolute Monos (auto) 1.0 H 10^3/uL
(0.1-0.6)
Monocytes % 13.4 H %
(1.7-9.3)
Carbon Dioxide 32 H mmol/L
(22-30)
Urine Bacteria (Reflex) Few A
(Negative)
Urine Albumin (Reflex) 1+ A
(Neg - Trace)
06/30/25 13:47
06/30/25 13:47
Vital Signs
Initial and Last Documented VS:
Initial Vital Signs
Pulse Ox
94
06/30/25 13:30
Last Documented Vital Signs
Temp Pulse Resp BP Pulse Ox
98.4 F 56 16 137/70 97
06/30/25 15:04 06/30/25 14:30 06/30/25 14:30 06/30/25 14:00 06/30/25 14:30
MDM/Problems Addressed
MDM/Problems Addressed:
Labs reassuring, chest x-ray independently interpreted by me negative for infiltrate. COVID and flu negative. Urinalysis not consistent with UTI. Likely self-limited viral syndrome, discussed supportive care
*Pulse Oximetry
Patient hypoxic: no
*Critical Care Note
Total Time (30-74mins, 75-104mins- exclusive of procedures): Not Applicable
ED Attending Note
-
Portions of this chart may have been created with voice recognition software.� Occasional wrong word or��sound alike� substitutions may have occurred due to the inherent limitations of voice recognition software.
Discharge Plan
Departure
Patient Disposition: Home (Routine Discharge)
Date of Disposition: 06/30/25
Time of Disposition: 15:03
Patient with high blood pressure during this ER visit?: No
Discharge Problem:
Fever
Instructions: Fever, Adult (DC)
Prescriptions:
No Action
sertraline 100 MG tablet
100 mg PO DAILY
cyanocobalamin (vitamin B-12) 1,000 MCG tablet
1,000 mcg PO DAILY
acetaminophen [Tylenol Extra Strength] 500 MG tablet
1,000 mg PO Q8HPRN PRN (Reason: mild pain/fever)
risperidone 2 MG tablet
2 mg PO DAILY
tamsulosin 0.4 MG capsule
0.4 mg PO HS
Mucinex DM 1 EACH tablet extended release 12 hr
1 ea PO [id number] PRN (Reason: cough/congestion)
risperidone 1 MG tablet
1 mg PO HS
cholecalciferol (vitamin D3) 1,000 UNITS tablet
1,000 units PO DAILY
vitamin E (dl, acetate) 400 UNITS capsule
400 units PO BID
mirabegron [Myrbetriq] 50 MG tablet extended release 24 hr
50 mg PO QPM
finasteride 5 mg Tablet
5 mg PO DAILY
doxycycline hyclate 100 mg Capsule
100 mg PO Q12 4 Days Qty: 8 0RF
enoxaparin 40 mg/0.4 mL Syringe
40 mg SC DAILY 28 Days Qty: 28 0RF
cefdinir 300 mg capsule
300 mg PO Q12H 4 Days Qty: 8 0RF
Referrals:
Garima Sumner PA [Family Provider, Internal Medicine]
Interventions
Interventions:
*Risk Screen - Suicide Last Done: 06/30/25 13:42
*General Assessment Last Done: 06/30/25 13:42
*Neglect/Abuse Screening Last Done: 06/30/25 13:42
*ED COVID-19 Vaccine History Last Done: 06/30/25 13:42
*ED Influenza Vaccine History Last Done: 06/30/25 13:42
ED- Neurological Assessment Last Done: 06/30/25 13:42
ED-Skin Assessment Last Done: 06/30/25 13:42
Discharge Date and Time
Print Language: [place]
[2025-06-30 13:42] VITALS: BP 137/69
[2025-06-30 13:58] LABS: Hematocrit 43.5 % (39.0-52.0); Hemoglobin 14.8 g/dL (13.0-18.0); Mean Corp Hgb Conc. 34.0 g/dL (33.0-37.0); Mean Corpuscular Volume 91.2 fL (80.0-94.0); Nucleated Red Blood Cells % 0 % (-); Platelet Count 240 10^3/uL (130-400); Red Cell Dist. Width 14.6 % (11.5-14.5)
[2025-06-30 14:00] VITALS: BP 137/70
[2025-06-30 14:11] LABS: COVID-19 Antigen Negative (Negative)
[2025-06-30 14:29] LABS: ALT (SGPT) 16 U/L (0-50); AST (SGOT) 29 U/L (17-59); Albumin 3.9 g/dl (3.5-5.0); Alkaline Phosphatase 69 U/L (38-126); Blood Urea Nitrogen 13 mg/dl (9-20); Calcium 9.7 mg/dl (8.4-10.2); Carbon Dioxide 32 mmol/L (22-30); Chloride 105 mmol/L (98-107); Glucose 81 mg/dl (70-99); Potassium 4.3 mmol/L (3.5-5.1); Sodium 138 mmol/L (135-145); Total Protein 6.7 g/dl (6.3-8.2); eGFR > 60.00
[2025-06-30 14:38] LABS: Urine Character Clear (Clear)
[2025-06-30 14:47] LABS: Urine Red Blood Cell 0-2 /HPF (0-2); Urine White Cell 0-2 /HPF (0-5)
== END 2025-06-30 15:41 | disposition home or self-care (01) ==
LOC: EMR 13:23
PROVIDERS: Physician Assistant; EMERGENCY PHYSICIAN Student in an Organized Health Care Education/Training Program; FAMILY PHYSICIAN Internal Medicine
DX: R50.9 Fever, unspecified (principal); F79 Unspecified intellectual disabilities; F32.A Depression, unspecified; R27.0 Ataxia, unspecified; N40.0 Benign prostatic hyperplasia without lower urinary tract symptoms; C91.41 Hairy cell leukemia, in remission
CPT/HCPCS: 99284; 71046; 80053; 81003; 81015; 85025; 87502; 87811

== ENCOUNTER 2025-07-01 17:25 | Emergency (ER) | payer MEDICARE, OTHER, SELFPAY ==
[2025-07-01 17:28] VITALS: BP 153/93
[2025-07-01 17:29] VITALS: BP 153/93
[2025-07-01 17:34] VITALS: BMI 29.3
[2025-07-01 18:00] VITALS: BP 153/93
[2025-07-01 18:56] LABS: Hematocrit 47.1 % (39.0-52.0); Hemoglobin 15.8 g/dL (13.0-18.0); Mean Corp Hgb Conc. 33.5 g/dL (33.0-37.0); Mean Corpuscular Volume 92.2 fL (80.0-94.0); Platelet Count 276 10^3/uL (130-400); Red Cell Dist. Width 14.8 % (11.5-14.5)
[2025-07-01 19:07] LABS: Blood Urea Nitrogen 14 mg/dl (9-20); Calcium 9.7 mg/dl (8.4-10.2); Carbon Dioxide 32 mmol/L (22-30); Chloride 100 mmol/L (98-107); Estimated Creatinine Clearance 69 ml/min; Glucose 93 mg/dl (70-99); Potassium 4.4 mmol/L (3.5-5.1); Sodium 137 mmol/L (135-145); eGFR > 60.00
--- NOTE | 2025-07-01 19:29 | ED.GENMED ---
History of Present Illness
General
Chief Complaint: Weakness
Source: patient and family
Exam Limitations: none
Time Seen by Provider: 07/01/25 18:15
Nursing documentation reviewed up to this point in time: agreed with
History of Present Illness
History of Present Illness:
Patient with history of MR, right hip fracture in March 2025, with baseline utilizes walker with assistance, presents to ED from assisted living secondary to facial droop, along with left arm and left leg weakness, when attempting to ambulate this
afternoon. Upon arrival, patient is alert and awake, and has no complaints. Denies recent illness. Denies pain. Per sister at bedside, patient has not had any similar symptoms in the past, but states that patient appears to be at his baseline in
ED.
Review of Systems
Review of Systems
Allergies reviewed?: Yes
Constitutional: Reports no symptoms
Respiratory: Reports no symptoms
Cardiac: Reports no symptoms
ABD/GI: Reports no symptoms
Musculoskeletal: Reports no symptoms
Skin: Reports no symptoms
Neurological: Reports weakness; Denies dizzy, headache or numbness
Phy Exam
Physical Exam
Physical Exam:
Physical Exam
General: no apparent distress, not acutely ill. afebrile
Head: nc/at. eomi
Neck: supple. normal range of motion.
Heart: s1/s2 regular rate and rhythm
Lungs: no acute respiratory distress. clear bilaterally
Abdomen: normal bowel sounds. not tender.
Neuro: alert and oriented x 3. no focal sensory/motor deficit. normal speech. no facial droop
Skin: no rash
Psychiatric: well kept. interactive and cooperative
Extremities: no edema. no calf tenderness.
Course
Orders/Labs/Results
Orders:
Orders
07/01/25 18:35
CT Head & Neck Angio W/wo IV Urgent
Comment:
Reason For Exam: left sided weakness
07/01/25 18:49
Basic Metabolic Panel Urgent
Complete Blood Count/No Diff Urgent
Abnormal Lab Results
07/01/25
18:49
RDW 14.8 H %
(11.5-14.5)
Carbon Dioxide 32 H mmol/L
(22-30)
07/01/25 18:49
07/01/25 18:49
Vital Signs
Initial and Last Documented VS:
Initial Vital Signs
BP
153/93
07/01/25 17:28
Last Documented Vital Signs
Temp Pulse Resp BP Pulse Ox
99.4 F 67 17 153/93 96
07/01/25 17:29 07/01/25 18:15 07/01/25 18:15 07/01/25 18:00 07/01/25 19:32
MDM/Problems Addressed
MDM/Problems Addressed:
Discussed with patient's sister at bedside, who confirms that pt is currently at baseline without any focal neurological deficit. Differential diagnosis, i.e. TIA, Reuben's paralysis, nonspecific weakness, discussed. Decision made to obtain imaging
studies, i.e. CT/CTA. If negative and patient remains without any recurrent neurological symptoms, consider discharging patient back to assisted living.
CT/CTA report discussed with patient and sister. Repeat neurological exam without any acute deficit.
Sister would like to have the patient discharged at this time, where he would be monitored closely by staff, which I believe is reasonable approach at this time.
*Pulse Oximetry
SaO2: 96
Oxygen Mode of Delivery: Room air
Patient hypoxic: no
*Critical Care Note
Total Time (30-74mins, 75-104mins- exclusive of procedures): Not Applicable
ED Attending Note
-
Portions of this chart may have been created with voice recognition software.� Occasional wrong word or��sound alike� substitutions may have occurred due to the inherent limitations of voice recognition software.
Discharge Plan
Departure
Patient Disposition: Fdc/SNF
Date of Disposition: 07/01/25
Time of Disposition: 20:22
Patient with high blood pressure during this ER visit?: Yes
Discharge Problem:
Weakness
Instructions: Generalized Weakness (DC)
Prescriptions:
No Action
sertraline 100 MG tablet
100 mg PO DAILY
cyanocobalamin (vitamin B-12) 1,000 MCG tablet
1,000 mcg PO DAILY
acetaminophen [Tylenol Extra Strength] 500 MG tablet
1,000 mg PO Q8HPRN PRN (Reason: mild pain/fever)
risperidone 2 MG tablet
2 mg PO DAILY
tamsulosin 0.4 MG capsule
0.4 mg PO HS
Mucinex DM 1 EACH tablet extended release 12 hr
1 ea PO [id number] PRN (Reason: cough/congestion)
risperidone 1 MG tablet
1 mg PO HS
cholecalciferol (vitamin D3) 1,000 UNITS tablet
1,000 units PO DAILY
vitamin E (dl, acetate) 400 UNITS capsule
400 units PO BID
mirabegron [Myrbetriq] 50 MG tablet extended release 24 hr
50 mg PO QPM
finasteride 5 mg Tablet
5 mg PO DAILY
doxycycline hyclate 100 mg Capsule
100 mg PO Q12 4 Days Qty: 8 0RF
enoxaparin 40 mg/0.4 mL Syringe
40 mg SC DAILY 28 Days Qty: 28 0RF
cefdinir 300 mg capsule
300 mg PO Q12H 4 Days Qty: 8 0RF
Referrals:
Garima Sumner PA [Family Provider, Internal Medicine]
Activity Restrictions/Additional Instructions:
As discussed, please follow-up with your primary care physician for reevaluation. Please consider return to ED with recurrent weakness.
Interventions
Interventions:
*Risk Screen - Suicide Last Done: 07/01/25 17:29
*General Assessment Last Done: 07/01/25 17:58
*Neglect/Abuse Screening Last Done: 07/01/25 17:29
*ED COVID-19 Vaccine History Last Done: 07/01/25 17:58
*ED Influenza Vaccine History Last Done: 07/01/25 17:58
[facility] Fall Risk Assessment Tool Last Done: 07/01/25 19:43
*Nursing Disposition Last Done: 07/01/25 20:39
ED- Cardiac Assessment Last Done: 07/01/25 17:58
ED- Neurological Assessment Last Done: 07/01/25 17:58
ED- Pulmonary Assessment Last Done: 07/01/25 17:58
Discharge Date and Time
Discharge Date/Time: 07/01/25 20:40
Print Language: MALTESE
== END 2025-07-01 20:40 ==
LOC: EMR 17:25
PROVIDERS: EMERGENCY PHYSICIAN Emergency Medicine; FAMILY PHYSICIAN Internal Medicine
DX: R53.1 Weakness (principal)
CPT/HCPCS: 99284; 70496; 70498; 80048; 85027; Q9967